=== PATIENT | female | born 1965 | race Two or more races ===

== ENCOUNTER 2023-03-12 10:20 | Emergency (ER) | payer OTHER, SELFPAY ==
--- NOTE | ~2023-03-12 | XR_ITS ---
EXAMINATION: XR FOOT, RIGHT CLINICAL INFORMATION: Right foot lump on the bottom. COMPARISON: None available. TECHNIQUE: AP, lateral, and oblique views of the right foot. FINDINGS: The bones and soft tissues are normal. No fracture. Alignment is anatomic. Joint spaces are maintained. No foreign body or soft tissue masses detected. XR/XR foot RT 2V IMPRESSION: Normal right foot. If there is clinical concern of a soft tissue mass suggest ultrasound if a ganglion is suspected or MRI if a soft tissue mass is suspected.
[2023-03-12 10:39] VITALS: BP 148/63; PULSE 83; RESP 16; TEMP 36.6; O2SAT 100; BMI 27.9
--- NOTE | 2023-03-12 11:17 | ED.EXTPRO ---
HPI - Extremity Problem General Chief complaint: Extremity Problem Stated complaint: Pain in right leg Time Seen by Provider: 03/12/23 11:13 Source: patient Mode of arrival: ambulatory Limitations: no limitations History of Present Illness HPI Narrative: Patient is 57-year-old female presenting to the emergency department with complaint of pain to plantar surface of right foot for the past week. Denies any fall or other trauma. Reports history of prior surgery to same foot, believes she had a cyst removed. Denies any numbness or tingling to foot. Has not used any [id number] medications for her symptoms. States pain increases with standing and ambulation. MD Complaint: extremity pain Onset (ago): week(s) Pain Consistency: constant Location: right Quality: sharp Radiation: none Relieving factors: rest Exacerbating factors: weight bearing and walking Associated symptoms: denies other symptoms Related Data Allergies Allergy/AdvReac Type Severity Reaction Status Date / Time No Known Allergies Allergy Verified 03/12/23 10:38 Review of Systems Review of Systems: As per HPI. Yes all other systems are reviewed and are negative Constitutional: Constitutional: Reports as per HPI [facility] Social History Social History Advance Directives: No Physical Exam Vital Signs: Vital Signs: Last Vital Signs Temp 97.8 F 03/12/23 10:39 Pulse 83 03/12/23 10:39 Resp 16 03/12/23 10:39 BP 148/63 H 03/12/23 10:39 Pulse Ox 100 03/12/23 10:39 O2 Del Method Room Air 03/12/23 10:39 BMI result Body Mass Index 27.9 Vital signs have been reviewed and appear to be correct. Blood pressure mildly elevated. Heart rate normal. Respiratory rate normal. Temperature normal. Oxygen saturation normal. Const: General: cooperative, healthy appearing and no acute distress Orientation/consciousness: oriented to person, oriented to place, oriented to time and patient oriented x3 Limitations: no limitations HEENT: Head: Yes normocephalic and Yes atraumatic Ears: external ears normal General nose exam: Normal external nose present Face and sinus: Yes face symmetric Mouth: oropharynx normal and moist mucous membranes Throat: Yes uvula midline Eyes: Pupils: Equal, round and reactive pupils present Neck: Neck: Yes normal visual inspection and Yes supple Resp: Effort & Inspection: normal respiratory effort and able to speak in complete sentences Auscultation: clear to auscultation bilaterally Cardio: Rate: regular rate Rhythm: regular rhythm Heart sounds: S1 normal heart sound present and S2 normal heart sound present Skin: General skin exam: elasticity normal and turgor normal Neuro: General: oriented to person, oriented to place, oriented to time, patient oriented x3, moves all extremities, no focal motor deficits and CN's II-XI intact bilaterally Cranial nerves: Yes Equal, round and reactive pupils present Cognition (Neuro): normal cognition Extrem: General: Yes full ROM, Yes no pedal edema and Yes no calf tenderness Right lower extremity: foot Details: normal capillary refill, normal to inspection, tenderness (between 3rd and 4th metatarsals) Location: of the plantar foot Location: distally, toes with normal ROM, no edema and vascular exam Details: dorsalis pedis pulse present and posterior tibial pulse present; no unusual warmth, no ecchymosis and no puncture wound Psych: Mental Status: mental status grossly normal Affect: normal affect Thought process: Normal thought process present Medical Decision Making Medical Decision Making [facility] Narrative: Patient is 57-year-old female presenting to the emergency department with complaint of pain to plantar surface of right foot for the past week. On exam patient is awake, A+Ox3, VS WNL, afebrile, normal neurological exam without focal deficits, physical exam findings as above. Given reported symptoms and physical exam findings, initial differential includes interdigital neuroma, bunion, metatarsalgia, plantar fasciitis. X-ray notable for no bony abnormalities. My interpretation is in agreement with the radiologist's interpretation. Results discussed with patient. Advised patient that she can use OTC pads for support and to take pressure off the painful area, should wear wide-toe shoes, and should elevated and ice foot when at rest. Patient states she has an appointment with her cardroom drawing runner in April. Advised patient to call for possible earlier appointment given foot pain. Will also refer to [facility] if patient is unable to follow-up with her cardroom drawing runner. Return precautions discussed at bedside. Patient had episode of asymptomatic hypoglycemia while in the ED, was given food and drink and blood glucose improved. Patient verbalized understanding of and agreement with plan. Differential Diagnosis Differential Diagnoses: The differential diagnosis associated with the presentation includes As per [facility] Lab Data [facility] Lab Attestation statement: I reviewed the patient's lab results. Labs: Lab Results 03/12/23 03/12/23 Range/Units 12:56 13:19 POC Glucose 47 L* 76 (60-115) mg/dL Independent Interpretation I performed an independent interpretation of an: Plain X-Ray Interpretation: no bony abnormalities Radiology Impression Discussion of test interpretation with radiology: I have reviewed the radiologist's reading. Radiologist Impression: XR/XR foot RT 2V IMPRESSION: Normal right foot. If there is clinical concern of a soft tissue mass suggest ultrasound if a ganglion is suspected or MRI if a soft tissue mass is suspected. External Record Review External record reviewed: Inpatient record, Office record and Outpatient record Discharge Plan Discharge Clinical Impression: Foot pain, right Patient Disposition: Home, Self-Care Additional Instructions: You have been evaluated in the emergency department today for foot pain. Your x-ray did not show any evidence of fracture or other bony abnormalities. You can purchase over the counter pads to use in your shoes to take pressure off the painful area of your foot. You should also try to wear wide-toed shoes. You are being referred to the [facility] specialists for further evaluation and management of your symptoms. Please call their office to set up an appointment. We recommend you take 600mg ibuprofen every 6 hours or 650mg Tylenol every 6 hours as needed for pain. If needed you can alternate these medications as they take 1 medication every 3 hours. For instance at noon take ibuprofen, then at 3:00 p.m. take Tylenol, then at 6:00 p.m. take ibuprofen. Please schedule an appointment for follow-up with your primary care provider this week. Return to the emergency department if you experience worsening pain, numbness, tingling, change of color in your foot, or any other concerning symptoms. Referrals: [facility] [Provider Group]
[2023-03-12 12:59] LABS: Glucose, Whole Blood 47 mg/dL (60-115)
[2023-03-12 13:23] LABS: Glucose, Whole Blood 76 mg/dL (60-115)
== END 2023-03-12 15:21 | disposition home or self-care (01) ==
PROVIDERS: Emergency Provider Student in an Organized Health Care Education/Training Program
DX: M79.671 Pain in right foot (principal); E16.2 Hypoglycemia, unspecified
CPT/HCPCS: 73620; 82947; 99282; 99283

== ENCOUNTER 2024-05-11 17:54 | Emergency (ER) | payer OTHER, SELFPAY ==
--- NOTE | ~2024-05-11 | US_ITS ---
CLINICAL HISTORY: r o abscess. pain erythema Ultrasound of the right breast. Findings: In the lower inner quadrant of the right breast there is a complex fluid collection measuring 2.4 x 1.6 x 2 cm. This is just deep to the dermis. Impression: Complex fluid collection in the region of interest. In the appropriate setting this is likely an abscess correlate clinically and follow-up as warranted. This document has been electronically signed by: Vitaliy Keita MD on 05/11/2024 20:49:17
[2024-05-11 18:50] VITALS: BP 152/63; PULSE 83; RESP 16; TEMP 36.6; O2SAT 99; BMI 26.8
--- NOTE | 2024-05-11 18:50 | ED.SKABFB ---
HPI - Skin/Abscess/Foreign Bdy General Chief complaint: General Medical Stated complaint: Rt breast lump Related Data Previous Rx's ?Medication ?Instructions ?Recorded cephalexin 500 mg capsule 500 mg PO QID 7 days #28 caps 05/12/24 doxycycline hyclate 100 mg tablet 100 mg PO BID 7 days #14 tabs 05/12/24 Allergies Allergy/AdvReac Type Severity Reaction Status Date / Time No Known Allergies Allergy Verified 05/14/24 11:29 [facility] Past Medical History Medical History (Updated 05/16/24 @ 16:02 by ANNA Trivedi) Abscess of chest wall DM2 (diabetes mellitus, type 2) HLD (hyperlipidemia) HTN (hypertension) Social History Social History Advance Directives: No Advance Directives Information Provided: Yes Do you have a plan to hurt others: No Plan Physical Exam Vital Signs: Vital Signs: Last Vital Signs Temp 98 F 05/11/24 18:50 Pulse 83 05/11/24 18:50 Resp 16 05/11/24 18:50 BP 152/63 H 05/11/24 18:50 Pulse Ox 99 05/11/24 18:50 O2 Del Method Room Air 05/11/24 18:50 BMI result Body Mass Index 26.8 Course Course Course Narrative: This is a Rapid Medical Exam performed in triage by Nessa Villaseñor PA-C. Full HPI, ROS and PE to be performed by primary ED provider. 58yoF w/pmhc HLD, presenting to the ED c/o R breast pain since last night radiating to back. Had recent mammogram PE: +indurated & erythematous area noted to 5 o'clock region beneath breast. +ttp. no fluctuance Plan: labs, US Medical Decision Making Lab Data 05/11/24 19:41 05/11/24 19:41 Labs: Lab Results 05/11/24 Range/Units 19:41 WBC 8.3 (4.8-10.8) X10*3/uL RBC 3.52 L (4.20-5.50) X10*6/uL Hgb 10.8 L (12.0-16.0) g/dl Hct 32.3 L (37.0-47.0) % MCV 91.8 (80.0-98.0) fL MCH 30.7 (27.0-33.0) pg MCHC 33.4 (31.0-35.0) g/dl RDW 12.3 (11.0-16.0) % Plt Count 249 (160-400) X10*3/uL MPV 10.4 (9.4-12.3) fL Immature Gran % (Auto) 0.5 H (0.0-0.4) % Neut % (Auto) 65.1 (45-73) % Lymph % (Auto) 22.9 (20-40) % [place] % (Auto) 9.2 (2-11) % Eos % (Auto) 1.8 (0-4) % Baso % (Auto) 0.5 (0-2) % Lymph # (Auto) 1.9 (1.2-4.9) X10*3/uL [place] # (Auto) 0.8 (0.1-1.2) X10*3/uL Eos # (Auto) 0.2 (0.0-0.4) X10*3/uL Baso # (Auto) 0.0 (0.0-0.2) X10*3/uL Abs Immat Gran (auto) 0.04 H (0.00-0.03) X10*3/uL Absolute Neuts (auto) 5.4 (2.0-8.3) x10*3/uL Absolute Nucleated RBC 0.000 (0.0-0.012) X10*3/uL Nucleated RBC % (auto) 0.0 (0.0-0.2) /100WBC ESR 45 H (0-20) MM/HR Sodium 137 (135-145) mmol/L Potassium 4.6 (3.3-5.1) mmol/L Chloride 104 (96-108) mmol/L Carbon Dioxide 25 (22-29) mmol/L Anion Gap 13 (12-20) BUN 23 H (9-16) mg/dL Creatinine 1.26 (0.5-1.4) mg/dL Estim Creat Clear Calc 51.5 Estimated GFR 43 Random Glucose 542 H* (60-115) mg/dL Calcium 8.5 (8.4-10.2) mg/dL C-Reactive Protein 5.97 H (< or = 0.50) mg/dL Discharge Plan Discharge Clinical Impression: Abscess of chest wall Patient Disposition: Left W/O Completing Treatment Prescriptions: No Action cephalexin 500 mg capsule 500 mg PO QID 7 Days Qty: 28 0RF doxycycline hyclate 100 mg tablet 100 mg PO BID 7 Days Qty: 14 0RF Discharge Date/Time: 05/11/24 23:04
--- NOTE | 2024-05-11 18:52 | ECG_ITS ---
Test Reason : BREAST PAIN RAD TO BACK Blood Pressure : */* mmHG Vent. Rate : 79 BPM Atrial Rate : 79 BPM P-R Int : 166 ms QRS Dur : 66 ms QT Int : 354 ms P-R-T Axes : 59 3 41 degrees QTcB Int : 405 ms Normal sinus rhythm Minimal voltage criteria for LVH, may be normal variant ( R in aVL ) Borderline ECG No previous ECGs available Referred By: Nessa Villaseñor Electronically Signed By: ANGELIQUE LAWS
[2024-05-11 19:46] LABS: MANUAL DIFF FLAG NO
[2024-05-11 19:47] LABS: Basophils Percent Auto 0.5 % (0-2); Eosinophils Absolute Auto 0.2 X10*3/uL (0.0-0.4); Eosinophils Percent Auto 1.8 % (0-4); Hematocrit 32.3 % (37.0-47.0); Hemoglobin 10.8 g/dl (12.0-16.0); Imm Gran Abs Auto 0.04 X10*3/uL (0.00-0.03); Imm Gran Pct Auto 0.5 % (0.0-0.4); Lymphocytes Absolute Auto 1.9 X10*3/uL (1.2-4.9); Lymphocytes Percent Auto 22.9 % (20-40); Mean Corpuscular HGB Conc 33.4 g/dl (31.0-35.0); Mean Corpuscular Hemoglobin 30.7 pg (27.0-33.0); Mean Corpuscular Volume 91.8 fL (80.0-98.0); Mean Platelet Volume 10.4 fL (9.4-12.3); Monocytes Absolute Auto 0.8 X10*3/uL (0.1-1.2); Monocytes Percent Auto 9.2 % (2-11); Neutrophils Absolute Auto 5.4 x10*3/uL (2.0-8.3); Neutrophils Percent Auto 65.1 % (45-73); Platelet Count 249 X10*3/uL (160-400); Red Blood Count 3.52 X10*6/uL (4.20-5.50); Red Cell Distribution Width 12.3 % (11.0-16.0); White Blood Count 8.3 X10*3/uL (4.8-10.8)
[2024-05-11 20:04] LABS: Anion Gap 13 (12-20); Blood Urea Nitrogen 23 mg/dL (9-16); C Reactive Protein 5.97 mg/dL (< or = 0.50); Calcium 8.5 mg/dL (8.4-10.2); Carbon Dioxide 25 mmol/L (22-29); Chloride 104 mmol/L (96-108); Creatinine Clr Calc Pharmacy 51.5; Estimated Glomerular Filt Rate 43; Glucose Random 542 mg/dL (60-115); Potassium 4.6 mmol/L (3.3-5.1); Sodium 137 mmol/L (135-145)
[2024-05-11 20:58] LABS: Erythrocyte Sedimentation Rate 45 MM/HR (0-20)
--- NOTE | 2024-05-11 22:50 | PC.NURSE ---
this RN called patient back on the phone @22:50 to let her know her name was called to come back to a room, patient states no i waited 5 hours and nobody called me This rn apologized for the delay explained it is very busy and asked if patient would like to come back as i would hold the bed, pt declined and hung up the phone. LWCT
== END 2024-05-11 23:04 | disposition left against medical advice (07) ==
LOC: HO.ED 22:54
PROVIDERS: Physician Assistant; Emergency Provider Emergency Medicine
DX: N63.10 Unspecified lump in the right breast, unspecified quadrant (principal); N64.4 Mastodynia; M54.50 Low back pain, unspecified; R94.31 Abnormal electrocardiogram [ECG] [EKG]; Z79.899 Other long term (current) drug therapy
CPT/HCPCS: 36415; 76642; 80048; 85025; 85652; 86140; 93005; 99283; 99284

== ENCOUNTER → 2024-05-11 18:52 | Outpatient (BNV) | payer OTHER, SELFPAY | PROVIDERS: Visit Provider Radiology Diagnostic Radiology | DX: N61.1 Abscess of the breast and nipple (principal) | CPT/HCPCS: 76642 ==

== ENCOUNTER → 2024-05-11 18:52 | Outpatient (BNV) | payer OTHER, SELFPAY | PROVIDERS: Emergency Provider Emergency Medicine; Visit Provider Internal Medicine | DX: R07.89 Other chest pain (principal) | CPT/HCPCS: 93010 ==

== ENCOUNTER 2024-05-12 10:02 | Emergency (ER) | payer OTHER, SELFPAY ==
[2024-05-12 10:19] VITALS: BP 148/50; PULSE 83; RESP 18; TEMP 36.7; O2SAT 100; BMI 25.3
--- NOTE | 2024-05-12 10:21 | ED.SKABFB ---
HPI - Skin/Abscess/Foreign Bdy General Chief complaint: Skin/Abscess/Foreign Body Stated complaint: breast lump called to return to er Time Seen by Provider: 05/12/24 14:00 Source: patient, family and old records reviewed Mode of arrival: ambulatory Limitations: no limitations History of Present Illness ED Provider: Isabel Zhu PA-C HPI narrative: Is a 58-year-old female, with a history of diabetes, who presents emergency department with complaints of abscess. Patient arrived to the emergency room yesterday, and an ultrasound of the right breast was obtained. Ultrasound of the right breast revealed complex fluid collection in right breast, just deep to the dermis. She reports that over the last month she has had pain, swelling in this region. She states that over the last 3-4 days, the pain and swelling has increased. She lives before being seen yesterday. Denies any fevers or chills. Her blood sugar was elevated yesterday however in better range today. No other complaints or concerns at this time. MD complaint: abscess/boil Tetanus up to date: yes Location: chest Severity: moderate Quality: aching Pain Consistency: constant Relieving factors: none Exacerbating factors: none Context: none Associated symptoms: denies other symptoms Treatments prior to arrival: none Related Data Previous Rx's ?Medication ?Instructions ?Recorded cephalexin 500 mg capsule 500 mg PO QID 7 days #28 caps 05/12/24 doxycycline hyclate 100 mg tablet 100 mg PO BID 7 days #14 tabs 05/12/24 Allergies Allergy/AdvReac Type Severity Reaction Status Date / Time No Known Allergies Allergy Verified 05/12/24 10:23 Review of Systems Review of Systems: Yes all other systems are reviewed and are negative Constitutional: Constitutional: Reports as per [facility] Past Medical History Medical History (Updated 05/12/24 @ 16:40 by ANNA Poole) DM2 (diabetes mellitus, type 2) HLD (hyperlipidemia) HTN (hypertension) Social History Social History Advance Directives: No Advance Directives Information Provided: Yes Physical Exam Vital Signs: Vital Signs: Last Vital Signs Temp 97.9 F 05/12/24 17:50 Pulse 66 05/12/24 17:50 Resp 15 05/12/24 17:50 BP 117/61 05/12/24 17:50 Pulse Ox 100 05/12/24 17:50 O2 Del Method Room Air 05/12/24 17:50 BMI result Body Mass Index 25.3 Const: General: cooperative, comfortable and no acute distress Orientation/consciousness: patient oriented x3 Limitations: no limitations HEENT: Head: Yes normal to inspection, Yes normocephalic and Yes atraumatic Ears: hearing grossly normal bilaterally General nose exam: Normal external nose present Face and sinus: Yes normal facial exam Mouth: Normal oral and palatal mucosa present, oropharynx normal and moist mucous membranes Throat: Yes posterior oropharynx normal Eyes: General: appearance normal, both eyes and all related structures Eyelids: Yes eyelids normal Conjunctivae: conjunctivae normal Sclerae: sclerae normal Pupils: Equal, round and reactive pupils present EOM: EOMs intact bilaterally Neck: Neck: Yes normal visual inspection, Yes full ROM and Yes no lymphadenopathy Lymphatic: no lymphadenopathy noted Chest: Chest palpation & inspection: normal inspection of the chest Resp: Effort & Inspection: normal respiratory effort and able to speak in complete sentences Auscultation: clear to auscultation bilaterally, no crackles, no rales, no rhonchi and no wheezes Cardio: Rate: regular rate Rhythm: regular rhythm Heart sounds: S1 normal heart sound present and S2 normal heart sound present GI: Inspection: Yes normal to inspection Skin: Other: Right breast, at the 5 o'clock position just lateral to the sternum, there is a 3 x 3 erythematous, area of induration, with 1 cm area of fluctuance and tenderness. No nipple discharge, no other erythema. No drainage Neuro: General: patient oriented x3 and moves all extremities Cranial nerves: Yes Equal, round and reactive pupils present Extrem: General: Yes normal to inspection Right upper extremity: normal to inspection Left upper extremity: normal to inspection Right lower extremity: normal to inspection Left lower extremity: normal to inspection Course Course Course Narrative: 58 yo female with PMH of DM, HLD, HTN not on blood thinners here with c/o few days R breast pain with bump and rash. No fevers, no n/v/d was seen yesterday CRP elevated and US of breast showed In the lower inner quadrant of the right breast there is a complex fluid collection measuring 2.4 x 1.6 x 2 cm. This is just deep to the dermis. On exam it is superficial. She couldn't sleep last night. repeat labs, can do bedside I+D and anticipate she could be started on PO antibiotics will refer to C this is a RAPID medical screening exam the rest of the history and physical exam is to be done by the main provider. Medications Administered Discontinued Medications Generic Name Dose Route Start Last Admin Trade Name Rodney PRN Reason Stop Dose Admin Lidocaine HCl 5 ml 05/12/24 15:08 05/12/24 15:52 Lidocaine Hcl 1 % Mpf 5 Ml Vial SUBCUT 05/12/24 15:09 5 ml ONCE ONE Administration Medical Decision Making Medical Decision Making [facility] Narrative: This is a 58-year-old female who presents emergency department with complaints of abscess to right breast for the last month, worsening over the last several days. On arrival, vital signs within normal limits. She is speaking full sentences under no acute distress. On examination, patient has abscess requiring I&D. Ultrasound performed yesterday confirming this. I&D was performed with purulent drainage expressed, area was packed. Will discharge patient on doxycycline and Keflex. Her tetanus is up-to-date. Given strict return precautions, patient stable for discharge Differential Diagnosis Differential Diagnoses: The differential diagnosis associated with the presentation includes Cellulitis, abscess, cyst Lab Data [facility] Lab Attestation statement: I reviewed the patient's lab results. No leukocytosis, normocytic anemia with an H&H of 11.4/34.8, chemistry revealing no evidence of CALVIN, hyperglycemic at 315, she does have a history of diabetes. 05/12/24 10:34 05/12/24 10:34 Labs: Lab Results 05/12/24 Range/Units 10:34 WBC 8.4 (4.8-10.8) X10*3/uL RBC 3.74 L (4.20-5.50) X10*6/uL Hgb 11.4 L (12.0-16.0) g/dl Hct 34.8 L (37.0-47.0) % MCV 93.0 (80.0-98.0) fL MCH 30.5 (27.0-33.0) pg MCHC 32.8 (31.0-35.0) g/dl RDW 12.4 (11.0-16.0) % Plt Count 277 (160-400) X10*3/uL MPV 10.5 (9.4-12.3) fL Immature Gran % (Auto) 0.5 H (0.0-0.4) % Neut % (Auto) 66.1 (45-73) % Lymph % (Auto) 21.4 (20-40) % [place] % (Auto) 8.9 (2-11) % Eos % (Auto) 2.4 (0-4) % Baso % (Auto) 0.7 (0-2) % Lymph # (Auto) 1.8 (1.2-4.9) X10*3/uL [place] # (Auto) 0.8 (0.1-1.2) X10*3/uL Eos # (Auto) 0.2 (0.0-0.4) X10*3/uL Baso # (Auto) 0.1 (0.0-0.2) X10*3/uL Abs Immat Gran (auto) 0.04 H (0.00-0.03) X10*3/uL Absolute Neuts (auto) 5.6 (2.0-8.3) x10*3/uL Absolute Nucleated RBC 0.000 (0.0-0.012) X10*3/uL Nucleated RBC % (auto) 0.0 (0.0-0.2) /100WBC PT 12.2 (10.9-12.4) SEC INR 1.0 (0.9-1.1) Sodium 138 (135-145) mmol/L Potassium 4.5 (3.3-5.1) mmol/L Chloride 104 (96-108) mmol/L Carbon Dioxide 26 (22-29) mmol/L Anion Gap 13 (12-20) BUN 19 H (9-16) mg/dL Creatinine 1.15 (0.5-1.4) mg/dL Estim Creat Clear Calc 55.0 Estimated GFR 48 Random Glucose 315 H (60-115) mg/dL Lactic Acid 0.7 (0.5-2.0) mmol/L Calcium 9.1 D (8.4-10.2) mg/dL Magnesium 1.6 (1.6-2.6) mg/dL Total Bilirubin 0.7 (0.0-1.0) mg/dL Direct Bilirubin 0.3 (0.0-0.5) mg/dL AST 19 (5-31) U/L ALT 20 (0-31) U/L Alkaline Phosphatase 97 (39-117) U/L Total Protein 7.4 (6.5-8.0) g/dL Albumin 3.8 (3.5-5.0) g/dL Lipase 20 (8-78) U/L Radiology Impression Discussion of test interpretation with radiology: I have reviewed the radiologist's reading. Radiologist Impression: Findings: In the lower inner quadrant of the right breast there is a complex fluid collection measuring 2.4 x 1.6 x 2 cm. This is just deep to the dermis. Impression: Complex fluid collection in the region of interest. In the appropriate setting this is likely an abscess correlate clinically and follow-up as warranted. Procedures Abscess I/D Site: chest Side (if applicable): right Local Anesthetic: lidocaine 1% Amount of anesthesia used (mL): 3 Technique: incised with blade Amount of fluid expressed (mL): 10 Sent for culture/gram staining?: Yes Packing used?: [email or web address] Discharge Plan Discharge Clinical Impression: Abscess of breast Patient Disposition: Home, Self-Care Instructions: Abscess (ED), Abscess Follow-up (ED) Additional Instructions: You were seen in the emergency department due to a lump in your right breast. This is an abscess, this was excised and drained. Please take prescribed antibiotic as directed, finish the entire course even if your symptoms improve. Please follow-up with the surgical service, Dr. Bowens. Alternate between ibuprofen and Tylenol as needed for pain and symptoms. The area will continue to drain, this is normal. You may change dressing as needed. Please return in 48-72 hours to have wick removed. If this falls out on its own, this is okay. If any new or worsening symptoms occur, including but not limited to increased redness, pain, fevers, chills, please seek emergent care. Prescriptions: New cephalexin 500 mg capsule 500 mg PO QID 7 Days Qty: 28 0RF doxycycline hyclate 100 mg tablet 100 mg PO BID 7 Days Qty: 14 0RF Referrals: Valentin Roberto MD [Physician] - Interventions: ED Discharge Assessment Last Done: 05/12/24 17:50 Discharge Date/Time: 05/12/24 17:50 Print Language: Chinese
[2024-05-12 10:40] LABS: MANUAL DIFF FLAG NO
[2024-05-12 10:43] LABS: Basophils Absolute Auto 0.1 X10*3/uL (0.0-0.2); Basophils Percent Auto 0.7 % (0-2); Eosinophils Absolute Auto 0.2 X10*3/uL (0.0-0.4); Eosinophils Percent Auto 2.4 % (0-4); Hematocrit 34.8 % (37.0-47.0); Hemoglobin 11.4 g/dl (12.0-16.0); Imm Gran Abs Auto 0.04 X10*3/uL (0.00-0.03); Imm Gran Pct Auto 0.5 % (0.0-0.4); Lymphocytes Absolute Auto 1.8 X10*3/uL (1.2-4.9); Lymphocytes Percent Auto 21.4 % (20-40); Mean Corpuscular HGB Conc 32.8 g/dl (31.0-35.0); Mean Corpuscular Hemoglobin 30.5 pg (27.0-33.0); Mean Platelet Volume 10.5 fL (9.4-12.3); Monocytes Absolute Auto 0.8 X10*3/uL (0.1-1.2); Monocytes Percent Auto 8.9 % (2-11); Neutrophils Absolute Auto 5.6 x10*3/uL (2.0-8.3); Neutrophils Percent Auto 66.1 % (45-73); Platelet Count 277 X10*3/uL (160-400); Red Blood Count 3.74 X10*6/uL (4.20-5.50); Red Cell Distribution Width 12.4 % (11.0-16.0); White Blood Count 8.4 X10*3/uL (4.8-10.8)
[2024-05-12 10:51] LABS: Prothrombin Time 12.2 SEC (10.9-12.4)
[2024-05-12 10:54] LABS: Lactic Acid 0.7 mmol/L (0.5-2.0)
[2024-05-12 11:03] LABS: Alanine Aminotransferase 20 U/L (0-31); Albumin Level 3.8 g/dL (3.5-5.0); Anion Gap 13 (12-20); Aspartate Amino Transferase 19 U/L (5-31); Bilirubin Direct 0.3 mg/dL (0.0-0.5); Bilirubin Total 0.7 mg/dL (0.0-1.0); Blood Urea Nitrogen 19 mg/dL (9-16); Calcium 9.1 mg/dL (8.4-10.2); Carbon Dioxide 26 mmol/L (22-29); Chloride 104 mmol/L (96-108); Estimated Glomerular Filt Rate 48; Glucose Random 315 mg/dL (60-115); Lipase 20 U/L (8-78); Magnesium 1.6 mg/dL (1.6-2.6); Potassium 4.5 mmol/L (3.3-5.1); Sodium 138 mmol/L (135-145); Total Protein 7.4 g/dL (6.5-8.0)
[2024-05-12 12:22] LABS: Alkaline Phosphatase 97 U/L (39-117)
[2024-05-12] MEDS: Lidocaine HCl 1 % MPF 5 ML VIAL SUBCUT (15:52)
[2024-05-12 16:48] VITALS: BP 117/61; PULSE 66; RESP 15; TEMP 36.6; O2SAT 100
[2024-05-12 17:50] VITALS: BP 117/61; PULSE 66; RESP 15; TEMP 36.6; O2SAT 100
== END 2024-05-12 17:50 | disposition home or self-care (01) ==
PROVIDERS: Emergency Medicine; Emergency Provider Emergency Medicine
DX: N61.1 Abscess of the breast and nipple (principal); N64.4 Mastodynia; R21 Rash and other nonspecific skin eruption; D64.9 Anemia, unspecified; E11.9 Type 2 diabetes mellitus without complications; I10 Essential (primary) hypertension; E78.5 Hyperlipidemia, unspecified; Z79.899 Other long term (current) drug therapy
CPT/HCPCS: 10060; 36415; 80048; 80076; 83605; 83690; 83735; 85025; 85610; 87040; 87070; 87205; 99283; 99284; J2003

== ENCOUNTER 2024-05-14 11:21 | Emergency (ER) | payer OTHER, SELFPAY ==
[2024-05-14 11:28] VITALS: BP 148/83; PULSE 79; RESP 18; TEMP 36.6; O2SAT 99; BMI 25.1
--- NOTE | 2024-05-14 11:28 | ED_ITS ---
HPI - Skin/Abscess/Foreign Bdy General Chief complaint: Wound/Laceration Stated complaint: told to come back to have wick removed Time Seen by Provider: 05/14/24 12:23 Source: patient and RN notes reviewed Mode of arrival: ambulatory Limitations: no limitations History of Present Illness ED Provider: Isabel Zhu PA-C HPI narrative: This is a 58-year-old female, with a past medical history of diabetes, who presents emergency department for wound check. Patient was seen here on 05/12/2024, due to a chest wall abscess. She had an incision and drainage at that time. She has been taking Keflex and doxycycline as prescribed, no missed dosages. The area continues to drain, with foul-smelling drainage. She reports subjective fevers and chills. Sugars have been well controlled. No other complaints or concerns at this time. complaint: abscess/boil Onset (ago): day(s) Tetanus up to date: yes Relieving factors: none Exacerbating factors: none Context: none Associated symptoms: fever (Subjective) and chills Treatments prior to arrival: none Related Data Previous Rx's ?Medication ?Instructions ?Recorded cephalexin 500 mg capsule 500 mg PO QID 7 days #28 caps 05/12/24 doxycycline hyclate 100 mg tablet 100 mg PO BID 7 days #14 tabs 05/12/24 Allergies Allergy/AdvReac Type Severity Reaction Status Date / Time No Known Allergies Allergy Verified 05/14/24 11:29 Review of Systems Review of Systems: Yes all other systems are reviewed and are negative [facility] Past Medical History Medical History (Updated 05/14/24 @ 13:24 by Sonu Montano MD) Abscess of chest wall DM2 (diabetes mellitus, type 2) HLD (hyperlipidemia) HTN (hypertension) Social History Social History Advance Directives: No Advance Directives Information Provided: Yes Do you have a plan to hurt others: No Plan Physical Exam Vital Signs: Vital Signs: Last Vital Signs Temp 98 F 05/14/24 13:21 Pulse 79 05/14/24 13:21 Resp 18 05/14/24 13:21 BP 148/83 H 05/14/24 13:21 Pulse Ox 99 05/14/24 13:21 O2 Del Method Room Air 05/14/24 13:21 BMI result Body Mass Index 25.1 Const: Other: General: Awake, alert, and oriented X3. No acute distress. HEENT: Normal inspection CVS: Normal heart rate and rhythm. Pulses normal. Respiratory: No respiratory distress Skin: Right breast, just lateral to the sternum, there is a 1 cm surgical incision made, with wick in place, mild surrounding erythema and induration. Foul-smelling, drainage coming from wound. Extremities: Normal to inspection Neuro: Oriented X 3. No motor deficit. No sensory deficit. Course Course Course Narrative: This is a Rapid Medical Examination (RME) performed by Aftab Hernandez PA-C in triage. Full HPI, ROS, assessment and treatment plan per primary provider in the Main ED. 58 yo female here for follow up on right breast abscess s/p I&D 2 days ago. discharged w/ abx, has been taking these as prescribed. reports foul smelling discharge from the area, feels as though it is worsening. denies fever/chills. +are not visualized in triage d/t privacy. will require further eval in back. Plan: further eval Medications Administered Discontinued Medications Generic Name Dose Route Start Last Admin Trade Name Freq PRN Reason Stop Dose Admin Lidocaine HCl 5 ml 05/14/24 12:50 05/14/24 13:10 Lidocaine Hcl 1 % Mpf 5 Ml Vial SUBCUT 05/14/24 12:51 Not Given ONCE ONE Medical Decision Making Medical Decision Making MDM Narrative: This is a 58-year-old female who presents emergency department for wound check. She was seen here 2 days ago where an incision and drainage was performed. Patient has been taking prescribed Keflex and doxycycline as prescribed. She is here for wound check. She reports that she has had foul-smelling drainage coming from the region, denies any documented fevers, she does report some subjective fevers and chills yesterday. Sugars have been well controlled. Discussed this case with my attending physician, Dr. Pratt, recommends reaching out to surgeon, Dr. Montano for consultation. Dr. Montano saw patient at bedside, removed wick, states no additional I and D needs to be performed. Recommends daily dressing changes, and follow-up outpatient as needed. Patient understands and agrees with plan. Patient discharged with strict return precautions. Differential Diagnosis Differential Diagnoses: The differential diagnosis associated with the presentation includes Cellulitis, abscess, cyst, wound check Chronic Conditions Patient?s care impacted by: Diabetes Discharge Plan Discharge Clinical Impression: Visit for wound check Patient Disposition: Home, Self-Care Instructions: Acute Wounds (ED) Additional Instructions: You were seen in the emergency department for a wound check. Your abscess seems to be healing well, you were seen by the surgeon, Dr. Montano. You can follow-up with their office. Every day wound dressing changes required. If any new or worsening symptoms occur including but not limited to worsening redness, swelling, please seek emergent care. Prescriptions: No Action cephalexin 500 mg capsule 500 mg PO QID 7 Days Qty: 28 0RF doxycycline hyclate 100 mg tablet 100 mg PO BID 7 Days Qty: 14 0RF Referrals: Sonu Montano MD [Physician] - Interventions: ED Discharge Assessment Last Done: 05/14/24 13:21 Discharge Date/Time: 05/14/24 13:20 Print Language: German
[2024-05-14 13:21] VITALS: BP 148/83; PULSE 79; RESP 18; TEMP 36.6; O2SAT 99
--- NOTE | 2024-05-14 13:22 | PM.CNGS ---
History of Present Illness Consult details Consult date: 05/14/24 Narrative: 58-year-old female who I was asked to see in the ER because of a recent I&D site. She went to the ER 2 days ago because of an abscess on the area just below the right breast on the chest wall. I&D was done under local anesthesia with note of significant amounts of pus drained. There was a packing placed. She was asked to return to have a wound check today The ED staff had me to check because of some residual induration. She had an ultrasound done prior to the I&D on May 11 and this showed an abscess cavity about 2.4 cm in diameter. The patient denies any fever. She has a known diabetic. She says her blood sugar was 75 this morning. Review of Systems Constitutional: Constitutional: Denies chills and Denies fever(s) Cardiovascular: Cardiovascular: Denies chest pain Respiratory: Respiratory: Denies cough Gastrointestinal: Gastrointestinal: Denies abdominal pain PMFSH Past Medical History Medical History (Updated 05/14/24 @ 13:24 by Sonu Montano MD) Abscess of chest wall DM2 (diabetes mellitus, type 2) HLD (hyperlipidemia) HTN (hypertension) Social History Social History Advance Directives: No Advance Directives Information Provided: Yes Do you have a plan to hurt others: No Plan Meds Allergies Allergy/AdvReac Type Severity Reaction Status Date / Time No Known Allergies Allergy Verified 05/14/24 11:29 Physical Exam Vital Signs: Vital Signs: Last Vital Signs Temp 98 F 05/14/24 11:28 Pulse 79 05/14/24 11:28 Resp 18 05/14/24 11:28 BP 148/83 H 05/14/24 11:28 Pulse Ox 99 05/14/24 11:28 O2 Del Method Room Air 05/14/24 11:28 BMI result Body Mass Index 25.1 Const: Other: Looks well General: comfortable and no acute distress Chest: Other: I&D site packing in place, very minimal residual induration, no cellulitis, no residual fluctuance, scanty residual drainage Cardio: Rate: regular rate GI: Palpation (GI): Soft to palpation Results Labs Labs: All other labs normal. Assessment and Plan (1) Abscess of chest wall: Status: Acute An I and D had been done by the ED staff 2 days ago. I have examined the patient. I removed her packing. The I&D site actually looks clean. This very minimal residual induration. There was no residual fluctuance nor worsening cellulitis I have changed her dressings. I did not feel she needs any further I and D or surgical intervention She should continue doing daily dry dressings at home She can follow up up in the office on a p.r.n. basis. Procedures Date of Service Date of Service: 05/14/24
== END 2024-05-14 13:20 | disposition home or self-care (01) ==
PROVIDERS: Emergency Provider Emergency Medicine
DX: Z48.01 Encounter for change or removal of surgical wound dressing (principal); L02.213 Cutaneous abscess of chest wall; E11.9 Type 2 diabetes mellitus without complications; I10 Essential (primary) hypertension; E78.5 Hyperlipidemia, unspecified
CPT/HCPCS: 99283

== ENCOUNTER → 2024-05-14 12:31 | Outpatient (BNV) | payer OTHER, SELFPAY | PROVIDERS: Emergency Provider Emergency Medicine; Visit Provider Surgery | DX: L02.213 Cutaneous abscess of chest wall (principal) | CPT/HCPCS: 99282 ==